=== PATIENT | female | born 1980 | race Caucasian/White ===

== ENCOUNTER 2017-10-10 13:56 | Emergency (ER) | payer MEDICAID ==
[2017-10-10 15:40] VITALS: BP 130/79
== END 2017-10-10 15:40 | disposition home or self-care (01) ==
LOC: ED 13:56
DX: S61.411A Laceration without foreign body of right hand, initial encounter (principal); W26.8XXA Contact with other sharp object(s), not elsewhere classified, initial encounter; Y93.E9 Activity, other interior property and clothing maintenance; Y99.8 Other external cause status; Y92.090 Kitchen in other non-institutional residence as the place of occurrence of the external cause
CPT/HCPCS: 90715

== ENCOUNTER 2018-08-22 21:33 | Emergency (ER) | payer MEDICAID ==
[~2018-08-22] VITALS: Ht 160 cm; Wt 71.3 kg
[2018-08-22 22:36] VITALS: BP 126/85
== END 2018-08-22 22:36 | disposition home or self-care (01) ==
LOC: ED 21:33
DX: M94.0 Chondrocostal junction syndrome [Tietze] (principal)

== ENCOUNTER 2019-06-07 22:44 | Emergency (ER) | payer MEDICAID ==
[~2019-06-07] VITALS: Ht 157.5 cm; Wt 68.9 kg
[2019-06-07 22:49] VITALS: Ht 157.5 cm; Wt 68.9 kg
[2019-06-07 23:12] LABS: BASOPHIL % 0.4 % (0-2); PLATELET COUNT 242 x10^3mcL (130-400); RED CELL DISTRIBUTION WIDTH 14.1 % (11.5-14.5)
[2019-06-08 02:07] VITALS: BP 113/77
== END 2019-06-08 | disposition home or self-care (01) ==
LOC: ED 22:44
DX: N94.6 Dysmenorrhea, unspecified (principal); N93.9 Abnormal uterine and vaginal bleeding, unspecified
CPT/HCPCS: J2270; Q0092

== ENCOUNTER 2020-12-24 08:30 | Emergency (ER) | payer MEDICAID, SELFPAY ==
[2020-12-24 08:32] VITALS: BP 145/73
[2020-12-24] MEDS ORDERED: ZIT250 PO (11:14)
[2020-12-24] MEDS ORDERED: TESSALON PERLE100 MG PO (11:14)
[2020-12-24] MEDS ORDERED: PROVENTIL0.09 MG/A1 IH (11:16)
== END 2020-12-24 11:40 | disposition home or self-care (01) ==
LOC: ED 08:30
DX: U07.1 COVID-19 (principal); J12.89 Other viral pneumonia
CPT/HCPCS: U0003

== ENCOUNTER 2021-01-05 21:09 | Emergency (ER) | payer MEDICAID ==
[~2021-01-05] VITALS: Ht 160 cm; Wt 69.9 kg
[~2021-01-05 21:09] MED LIST: PROVENTIL0.09 MG/A1 IH; TESSALON PERLE100 MG PO; ZIT250 PO
[2021-01-05 21:21] VITALS: Ht 160 cm; Wt 69.9 kg
[2021-01-05 21:47] LABS: BASOPHIL % 0.3 % (0.2-1.3); PLATELET COUNT 284 x10^3mcL (179-408); RED CELL DISTRIBUTION WIDTH 13.2 % (12.3-17.7)
[2021-01-05 22:01] LABS: CALCIUM 8.5 mg/dL (8.5-10.1); CARBON DIOXIDE 28.8 mmol/L (21-32); CHLORIDE SERUM 104 mmol/L (98-107); CREATININE SERUM 0.7 mg/dL (0.6-1.0); GFR1 > 60 mL/min; GLUCOSE SERUM 90 mg/dL (74-106); POTASSIUM SERUM 3.7 mmol/L (3.5-5.1); SODIUM SERUM 141 mmol/L (136-145)
[2021-01-05 22:05] LABS: ALBUMIN 3.6 g/dL (3.4-5.0); ALKALINE PHOSPHATASE 80 U/L (46-116); ALT/SGPT 27 U/L (14-59); AST/SGOT 16 U/L (15-37); BILIRUBIN TOTAL 0.4 mg/dL (0.20-1.00); LIPASE 91 IU/L (73-393); TOTAL PROTEIN, SERUM 7.3 g/dL (6.4-8.2)
[2021-01-05] MEDS ORDERED: ONDANSETRON4 M3 PO (22:50)
[2021-01-05] MEDS ORDERED: PROTONIX TR40 M1 PO (22:50)
[2021-01-05 23:51] VITALS: BP 122/77
== END 2021-01-05 23:51 | disposition home or self-care (01) ==
LOC: ED 21:09
PROVIDERS: Emergency Medicine
DX: K29.00 Acute gastritis without bleeding (principal)
CPT/HCPCS: J2270; J2405; J7030